=== PATIENT | female | born 1950 | race Caucasian/White ===

== ENCOUNTER 2018-03-04 18:55 | Inpatient (IN) | payer MEDICARE ==
[~2018-03-04] VITALS: Ht 160 cm; Wt 97.7 kg
--- OUTSIDE RECORDS SUMMARY | 2018-03-04 18:58 | XMS REPORT | Clinical Summary ---
Author Author [facility] Organization [facility] Address Unknown Phone Unavailable Care Team Providers Care Dry Transfer Man Name Role Phone Levi Subramanian MD PCP Allergies Comments Active Allergy Reactions Severity Noted Date Blisters in tongue Sulfa (Sulfonamide 04/30/2016 Antibiotics) Medications End Date Status Medication Sig Dispensed Refills Start Date Active buPROPion (WELLBUTRIN) Take 100 mg 0 100 MG tablet by mouth 2 (two) times a day. Active simvastatin (ZOCOR) 40 MG Take 40 mg by 0 tablet mouth nightly. Active amLODIPine (NORVASC) 10 Take 10 mg by 0 mg tablet mouth daily. Active aspirin (ECOTRIN) 81 MG Take 81 mg by 0 enteric coated tablet mouth daily. Active fluticasone-vilanterol Inhale 1 0 (BREO ELLIPTA) 200-25 inhalations mcg/dose blister with every device powder for morning. inhalation Active metFORMIN (GLUCOPHAGE) Take 1,000 mg 0 1,000 mg tablet by mouth 2 (two) times a day with meals. Active glipiZIDE (GLUCOTROL) 5 Take 5 mg by 0 MG tablet mouth 2 (two) times a day before meals. Active albuterol (PROAIR Inhale 2 0 HFA,PROVENTIL puffs every 6 HFA,VENTOLIN HFA) 90 (six) hours mcg/actuation inhaler as needed for wheezing. Active ipratropium-albuterol Take 3 mL by 0 (DUO-NEB) 0.5-2.5 mg/mL nebulization nebulizer 2 (two) times a day. Active tiZANidine (ZANAFLEX) 4 Take 4 mg by 0 MG tablet mouth every 6 (six) hours as needed for muscle spasms. Active CANAGLIFLOZIN (INVOKANA Take 300 mg 0 ORAL) by mouth every evening. Active Problems Problem Noted Date 4-part fracture of surgical neck of left humerus, initial encounter for 05/13/2016 closed fracture Social History Date Tobacco Use Types Packs/Day Years Used Current Every Day Smoker 0.5 40 Smokeless Tobacco: Never Used Alcohol Use Drinks/Week oz/Week Comments Yes 1/day Sex Assigned at Date Recorded Not on file Industry Job Start Date Occupation Not on file Not on file Not on file Travel End Travel History Travel Start No recent travel history available. Last Filed Vital Signs Not on file Plan of Treatment Health Maintenance Due Date Last Done Comments BREAST CANCER SCREENING 04/29/1999 COLON CANCER SCREENING 04/29/1999 SHINGLES VACCINES (1 of 04/29/1999 2) PNEUMOCOCCAL 2014 POLYSACCHARIDE VACCINE AGE 65 AND OVER PNEUMOCOCCAL-13 2014 INFLUENZA VACCINE 09/22/2017 Implants Device Identifier Shelf Expiration Date Model / Serial / Lot Implanted Type Area Manufactur er 11/28/2020 [id number] / / N/A Niceloop Suture White Nonabsorbable Accessorie N/A: N/A TORNIER Suture Loop Size 5- Qty Of 1 s Implanted: Qty: 2 on 05/14/2016 by Sung Jensen MD 12/16/2020 [id number] / / N/A Niceloop Suture White/Green Accessorie N/A: N/A TORNIER Nonabsorbable Suture Loop Size 5 - s Qty Of 1 Implanted: Qty: 2 on 05/14/2016 by Sung Jensen MD 12/16/2020 [id number] / [id number] / [id number] Restrictor Cmnt 24mm - [id number] - Human N/A: Shoulder TORNIER [id number] Tissue INC Implanted: Qty: 1 on 05/13/2016 by Implants Sung Jensen MD 12/16/2020 [id number] / / N/A Restrictor Cmnt 24mm - [id number] Human N/A: N/A TORNIER Implanted: Qty: 2 on 05/14/2016 by Tissue INC Sung Jensen MD Implants 06/13/2020 [id number] / / [id number] Aequalis Reversed Fracture Humeral IPM Left: Humerus TORNIER Stem 9 Mm Diameter X 130 Mm Length IMPLANT INC - [id number] [id number] Implanted: Qty: 1 on 05/13/2016 by Sung Jensen MD 07/21/2020 [id number] / / [id number] Aequalis Reversed Adapter IPM Left: Humerus TORNIER (Primary/Fracture To IMPLANT INC Reversed)Lateralized Insert - 36 Mm DEVICES X 9 Mm - [id number] Implanted: Qty: 1 on 05/13/2016 by Sung Jensen MD 01/03/2020 [id number] / / [id number] Baseplate Gleno Aequalis 25mm - Orthopedic Left: Humerus TORNIER [id number] [employer] Implanted: Qty: 1 on 05/13/2016 by Implants Sung Jensen MD 09/17/2020 [id number] / / [id number] Sphere Gleno Bsplt Centrd [id number] Orthopedic N/A: N/A TORNIER Aequalis - [id number] [employer] Implanted: Qty: 1 on 05/13/2016 by Implants Sung Jensen MD 05/22/2018 [id number] / / [id number] Cement Bone 20gr Cmw - [id number] Surgical N/A: N/A DEPUY Implanted: Qty: 2 on 05/13/2016 by Bone ORTHO Sung Jensen MD Cement [id number] / / 4.5mm X 23mm Locking Screw TORNIER Implanted: Qty: 1 on 05/13/2016 by Sung Jensen MD [id number] / / 4.5mm X 35mm Locking Screw TORNIER Implanted: Qty: 1 on 05/13/2016 by Sung Jensen MD [id number] / / 4.5mm X 45mm Compression Screw TORNIER Implanted: Qty: 1 on 05/13/2016 by Sung Jensen MD [id number] / / 4.5mm X 32mm Compression Screw TORNIER Implanted: Qty: 1 on 05/13/2016 by Sung Jensen MD Results Not on fileafter 03/03/2017 Insurance Payer Benefit Subscriber ID Type Phone Address Plan / Group MEDICARE MEDICARE xxxxxxxxxx Medicare [place], [place] PART A AND B AARP AARP xxxxxxxxxx Commercial SUPPLEMENT Advance Directives Patient has advance care planning documents on file. For more information, kaylee garber contact: Shamir Boss [address] [place] [address]
[2018-03-04] MEDS ORDERED: ALBUTEROL/IPRATROPIUM 3 ML NEB NEB STA ×2 (19:15→19:55)
[2018-03-04] MEDS ORDERED: METHYLPREDNISOLONE SOD SUCC 125 MG/2ML VIAL IV STA (19:15)
[2018-03-04] MEDS ORDERED: LEVOFLOXACIN 750MG/D5W 150ML 150 ML IV ONE (20:00)
--- NOTE | 2018-03-04 20:13 | Diagnostic Imaging Report ---
EXAMINATION: CXR 1 VIEW - HOPD INDICATION: COPD. Shortness of breath. COMPARISON: None FINDINGS: TUBES and LINES: None. LUNGS: Mild bilateral hyperinflation. 5.5 mm nodular density projected on the right lower lobe medially. 5.5 mm nodular density projected on the right upper lobe. Mild patchy density in the left lung base laterally represent atelectasis versus developing pneumonia in the proper clinical setting. PLEURA: No pleural effusion or pneumothorax. HEART AND MEDIASTINUM: The cardiomediastinal silhouette is unremarkable. BONES AND SOFT TISSUES: Bipolar left glenohumeral prosthesis partially visualized. UPPER ABDOMEN: No free air under the diaphragm. IMPRESSION: 1. Mild patchy density in the left lung base laterally represent atelectasis versus developing pneumonia in the proper clinical setting. Consider chest PA and lateral views for further evaluation. 2. 2 small right pulmonary nodules. Recommend follow-up chest PA and lateral views in 3 months to evaluate stability or lack thereof. Signed by: Dr. Cecy Stein M.D. on 03/04/2018 8:09 PM
[2018-03-04] MEDS: NICOTINE 14 MG/EA PATCH TOP SCH (20:45)
[2018-03-04] MEDS ORDERED: DEXTROSE 50% SYRINGE 50 ML IV PRN (20:45)
[2018-03-04] MEDS ORDERED: LEVOFLOXACIN 750MG/DEXTROSE PREMIX BAG 150ML IV SCH (20:45)
[2018-03-04] MEDS ORDERED: SODIUM CHLORIDE FLUSH 10 ML SYR INJ PRN (20:45)
[2018-03-04] MEDS: ALBUTEROL SULF 0.083% NEB SOLN 3 ML NEB NEB SCH (20:45)
--- OUTSIDE RECORDS SUMMARY | 2018-03-04 21:13 | XMS REPORT | Clinical Summary ---
Author Author [facility] Address Unknown Phone Unavailable Care Team Providers Care Maintenance Team Member Name Role Phone Levi Subramanian MD PCP [...] Lot Implanted Type Area Manufactur er 11/28/2020 [id number] / / N/A Niceloop Suture White Nonabsorbable Accessorie N/A: N/A TORNIER Suture Loop Size 5- Qty Of 1 s Implanted: Qty: 2 on 05/14/2016 by Sung Jensen MD 12/16/2020 [id number] / / N/A Niceloop Suture White/Green Accessorie N/A: N/A TORNIER Nonabsorbable Suture Loop Size 5 - s Qty Of 1 Implanted: Qty: 2 on 05/14/2016 by Sung Jensen MD 12/16/2020 [id number] / [id number] / [id number] Restrictor Cmnt 24mm - [id number] - Human N/A: Shoulder TORNIER [id number] Tissue INC Implanted: Qty: 1 on 05/13/2016 by Implants Sung Jensen MD 12/16/2020 [id number] / / N/A Restrictor Cmnt 24mm - [id number] Human N/A: N/A TORNIER Implanted: Qty: 2 on 05/14/2016 by Tissue INC Sung Jensen MD Implants 06/13/2020 [id number] / / [id number] Aequalis Reversed Fracture Humeral IPM Left: Humerus TORNIER Stem 9 Mm Diameter X 130 Mm Length IMPLANT INC - [id number] Implanted: Qty: 1 on 05/13/2016 by Sung Jensen MD 07/21/2020 [id number] / / [id number] Aequalis Reversed Adapter IPM Left: Humerus TORNIER (Primary/Fracture To IMPLANT INC Reversed)Lateralized Insert - 36 Mm DEVICES X 9 Mm - [id number] Implanted: Qty: 1 on 05/13/2016 by Sung Jensen MD 01/03/2020 [id number] / / [id number] Baseplate Gleno Aequalis 25mm - Orthopedic Left: Humerus TORNIER [id number] [employer] Implanted: Qty: 1 on 05/13/2016 by Implants Sung Jensen MD 09/17/2020 [id number] / / [id number] Sphere Gleno Bsplt Centrd [id number] Orthopedic N/A: N/A TORNIER Aequalis - [id number] [employer] Implanted: Qty: 1 on 05/13/2016 by Implants Sung Jensen MD 05/22/2018 [id number] / / [id number] Cement Bone 20gr Cmw - [id number] Surgical N/A: N/A DEPUY Implanted: Qty: 2 on 05/13/2016 by Bone ORTHO Sung Jensen MD Cement [id number] / / 4.5mm X 23mm Locking Screw TORNIER Implanted: Qty: 1 on 05/13/2016 by Sung Jensen MD [id number] / / 4.5mm X 35mm Locking Screw TORNIER Implanted: Qty: 1 on 05/13/2016 by Sung Jensen MD [id number] / / 4.5mm X 45mm Compression Screw TORNIER Implanted: Qty: 1 on 05/13/2016 by Sung Jensen MD [id number] / / 4.5mm X 32mm Compression Screw TORNIER Implanted: Qty: 1 on 05/13/2016 by Sung Jensen MD Results Not on fileafter 03/03/2017 Insurance Payer Benefit Subscriber ID Type Phone Address Plan / Group MEDICARE MEDICARE xxxxxxxxxx Medicare [place], [place] PART A AND B AARP AARP xxxxxxxxxx Commercial SUPPLEMENT Advance Directives Patient has advance care planning documents on file. For more information, kaylee garber contact: Shamir Boss [address] [place] [address]
--- OUTSIDE RECORDS SUMMARY | 2018-03-04 21:13 | XMS REPORT ---
[facility] Address Unknown Phone Unavailable Care Team Providers Care Card Sorter Name Role Phone LATOYA VALDEZ Unavailable Unavailable Problems This patient has no known problems. Allergies, Adverse Reactions, Alerts This patient has no known allergies or adverse reactions. Medications This patient has no known medications. Results Test Description Test Time Test Comments Text Results Atomic Results Result Comments CXR 1 [facility] 2018-03-04 20:07:00 [place] [address] Patient Name: BONIFACIO GUNDERSON MR #: [id number] : 1950 Age/Sex: 67/F Req #: [id number] [facility] Physician: Ordered by: LATOYA VALDEZ MD Report #: [id number] Location: [facility] Room/Bed: Procedure: [id number] HOPD/CXR 1 [facility] Exam Date: 03/04/18 Exam Time: 1950 REPORT STATUS: Signed EXAMINATION: CXR 1 [facility] INDICATION: COPD. Shortness of breath. COMPARISON: None FINDINGS: TUBES and LINES: None. LUNGS: Mild bilateral hyperinflation. 5.5 mm nodular density projected on the right lower lobe medially. 5.5 mm nodular density projected on the right upper lobe. Mild patchy density in the left lung base laterally represent atelectasis versus developing pneumonia in the proper clinical setting. PLEURA: No pleural effusion or pneumothorax. HEART AND MEDIASTINUM: The cardiomediastinal silhouette is unremarkable. BONES AND SOFT TISSUES: Bipolar left glenohumeral prosthesis partially visualized. UPPER ABDOMEN: No free air under the diaphragm. IMPRESSION: 1. Mild patchy density in the left lung base laterally represent atelectasis versus developing pneumonia in the proper clinical setting. Consider chest PA and lateral views for further evaluation. 2. 2 small right pulmonary nodules. Recommend follow-up chest PA and lateral views in 3 months to evaluate stability or lack thereof. Signed by: Dr. Cecy Brumfield M.D. on 03/04/2018 8:09 PM Dictated By: NASIM BRUMFIELD MD, MD 08 Transcribed By: JAVIER on 03/04/182008 COPY TO: LATOYA VALDEZ MD
[2018-03-04] MEDS ORDERED: AMLODIPINE BESY10 MG PO (21:47)
[2018-03-04] MEDS ORDERED: TURMERIC1 GM PO (21:47)
[2018-03-04] MEDS ORDERED: METFORMIN HCL500 MG PO (21:47)
[2018-03-04] MEDS ORDERED: INVOKANA (21:47)
[2018-03-04] MEDS ORDERED: BUPROPION HCL100 MG PO (21:47)
[2018-03-04] MEDS ORDERED: FARXIGA (21:47)
[2018-03-04] MEDS ORDERED: ASPIR 8181 MG (21:47)
[2018-03-04] MEDS ORDERED: GLIPIZIDE5 MG PO (21:47)
[2018-03-04] MEDS ORDERED: SIMVASTATIN20 MG PO (21:47)
[2018-03-04 22:36] VITALS: BP 156/71
[2018-03-04] MEDS: METHYLPREDNISOLONE SOD SUCC 125 MG/2ML VIAL IV SCH (22:36)
[2018-03-04 22:40] VITALS: BP 156/71
[2018-03-05] VITALS (9 sets, daily range): BP systolic 125–169; BP diastolic 61–69
[2018-03-05] MEDS: ALBUTEROL SULF 0.083% NEB SOLN 3 ML NEB NEB SCH ×7 (00:45→23:25)
[2018-03-05 04:46] LABS: BASOPHILS % 0.2 % (0.0-1.0); EOSINOPHILS % 0.1 % (0.0-6.0); HEMATOCRIT 43.3 % (34.2-44.1); HEMOGLOBIN 13.4 g/dL (12.0-16.0); LYMPHOCYTES # (AUTO) 0.8 (1.0-3.2); LYMPHOCYTES % 8.2 % (18.0-39.1); MEAN CORPUSCULAR HEMOGLOBIN 28.7 pg (28-32); MEAN CORPUSCULAR HGB CONC 30.9 g/dL (31-35); MEAN CORPUSCULAR VOLUME 92.7 fL (81-99); MONOCYTES # (AUTO) 0.1 (0.2-0.8); MONOCYTES % 0.6 % (4.4-11.3); NEUTROPHILS # (AUTO) 8.9 (2.1-6.9); NEUTROPHILS % 90.4 % (38.7-80.0); PLATELET COUNT 324 x10e3/uL (140-360); RED BLOOD COUNT 4.67 x10e6/uL (3.6-5.1); RED CELL DISTRIBUTION WIDTH 12.6 % (11.7-14.4)
[2018-03-05 05:02] LABS: CREATINE KINASE 47 IU/L (29-168)
[2018-03-05 05:24] LABS: ANION GAP 15.9 mmol/L (8-16); BLOOD UREA NITROGEN 10 mg/dL (7-26); BUN/CREATININE RATIO 13 (6-25); CALCIUM 10.1 mg/dL (8.4-10.2); CARBON DIOXIDE 32 mmol/L (22-29); CHLORIDE 99 mmol/L (98-107); CREATININE, SERUM 0.79 mg/dL (0.57-1.11); EST GLOMERULAR FILTRATION RATE > 60 ML/MIN (60-); GLUCOSE 213 mg/dL (74-118); POTASSIUM 4.9 mmol/L (3.5-5.1); SODIUM 142 mmol/L (136-145)
[2018-03-05] MEDS: IPRATROPIUM BROMIDE 0.02% 2.5 ML NEB NEB SCH ×5 (06:00→23:25)
[2018-03-05] MEDS: METHYLPREDNISOLONE SOD SUCC 125 MG/2ML VIAL IV SCH ×3 (06:07→20:57)
[2018-03-05] MEDS ORDERED: DEXTROSE 50% SYRINGE 50 ML IV PRN (08:45)
[2018-03-05] MEDS ORDERED: ZOLPIDEM TARTRATE 10 MG TAB PO PRN (08:45)
[2018-03-05] MEDS ORDERED: CEFTRIAXONE SOD 1 GM VIAL IV SCH (08:45)
[2018-03-05] MEDS: METFORMIN HCL 500 MG TAB PO SCH ×2 (09:25→17:01)
[2018-03-05] MEDS: ASPIRIN 81 MG CHEW TAB PO SCH (09:25)
[2018-03-05] MEDS: GLIPIZIDE 5 MG TAB PO SCH ×2 (09:25→17:01)
[2018-03-05] MEDS: OSELTAMIVIR PHOSPHATE 75 MG CAP PO SCH ×2 (09:25→17:01)
[2018-03-05] MEDS: BUPROPION HCL 100 MG TAB PO SCH (09:25)
[2018-03-05] MEDS: AMLODIPINE BESYLATE 10 MG TAB PO SCH (09:27)
[2018-03-05] MEDS ORDERED: SODIUM CHLORIDE 0.9% 250ML 250 ML ONE (09:54)
--- NOTE | 2018-03-05 09:54 | History and Physical ---
CHIEF COMPLAINT: Cough, congestion, and dyspnea. HISTORY OF PRESENT ILLNESS: The patient is a 67-year-old woman with a history of COPD. She uses p.o. at home as well as a rescue inhaler. She also has oxygen at home. She notes increased cough and congestion over the past several days. She has increased rhinorrhea. She is not having any chest pain or fevers. PAST MEDICAL HISTORY 1. COPD. 2. Diabetes. 3. Hypertension. PAST SURGICAL HISTORY: Status post partial small intestine resection for a mass. ALLERGIES: SULFA. SOCIAL HISTORY: This patient smoked about half a pack a day up until recently. She is not a drinker. 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 REVIEW OF SYSTEMS: She does not complain of any fever. She has no headache. She does have some nasal congestion. She is not having any neck pain. She has no swollen glands. She has no chest pain. She does note cough and some increased dyspnea. She has no abdominal pain. She has no nausea or vomiting. She has no leg edema. She denies any focal neurological complaints. PHYSICAL EXAMINATION VITAL SIGNS: The patient is afebrile, blood pressure is 137/63, and saturation is 97% on 3 liters. HEENT: Examination shows no facial swelling or erythema. The nasal mucosa is normal. Oropharynx is normal. LYMPHATIC: Examination shows no submandibular, cervical, or supraclavicular adenopathy. NECK: Shows no JVD or thyromegaly. There is no nuchal rigidity. CARDIOVASCULAR: Reveals a regular rate and rhythm with a normal S1 and S2. There are no murmurs or rubs. RESPIRATORY: Auscultation of lungs reveals rhonchorous breath sounds bilaterally. There is no wheezing. ABDOMEN: Soft and nontender. There is no rebound or guarding. EXTREMITIES: Examination of the extremities shows no leg edema or calf tenderness. There is no cyanosis or clubbing. SKIN: Shows no rashes. NEUROLOGIC: Exam shows no focal abnormalities. LABORATORY DATA: The BUN to creatinine ratio is 10 to 0.79 and the blood sugar is 167 to 213. The CBC is within normal limits. RADIOGRAPHIC DATA: The chest x-ray shows a density in the left lung base as well as a small pulmonary nodule in the right upper lung. IMPRESSION 1. Chronic obstructive pulmonary disease with acute exacerbation. 2. Community-acquired pneumonia. 3. Pulmonary nodule. 4. Hypertension. 5. Diabetes. PLAN 1. The patient will receive IV antibiotics along with Solu-Medrol. 2. Bronchodilators. 3. CT scan of the chest. 4. Alpha 1 antitrypsin level. 5. Monitor blood sugars. Job#: [id number] BRIAN
[2018-03-05] MEDS: CEFTRIAXONE SOD 1 GM/NS 50 ML 50 ML IV SCH ×2 (09:58→20:57)
[2018-03-05] MEDS: AZITHROMYCIN 500MG/NS 250 ML 250 ML IV SCH (09:58)
[2018-03-05] MEDS: INSULIN REGULAR, HUMAN 100 UNIT/1 ML 3ML VIAL SQ SCH ×3 (12:17→21:00)
[2018-03-05 12:30] LABS: CREATINE KINASE 51 IU/L (29-168)
--- NOTE | 2018-03-05 14:39 | Diagnostic Imaging Report ---
EXAM: CT Chest WITH contrast INDICATION: Nodule on prior chest radiograph, query pneumonia COMPARISON: None TECHNIQUE: Chest was scanned utilizing a multidetector helical scanner from the lung apex through the level of the adrenal glands without administration of IV contrast. Coronal and sagittal reformations were obtained. Routine protocol was performed. Dose modulation, iterative reconstruction, and/or weight based adjustment of the mA/kV was utilized to reduce the radiation dose to as low as reasonably achievable. IV CONTRAST: 100 mL of Isovue 370. RADIATION DOSE: Total DLP: 550.4 mGy*cm COMPLICATIONS: None FINDINGS: LINES/ TUBES: None. LUNGS AND AIRWAYS: Likely adherent mucus along the right lateral and inferior aspect of the trachea. No definite mass in the central airways. Moderate upper lobe predominant centrilobular emphysematous changes of the lungs. There is a 6 mm predominately calcified nodule in the right middle lobe on series 2, image 37. Motion artifact partially limits evaluation for lung nodule. No nodule corresponding to the opacity noted in the right upper lung on chest radiograph from 03/04/2018. PLEURA: The pleural spaces are clear. HEART AND MEDIASTINUM: The thyroid gland is normal. No mediastinal, hilar or axillary lymphadenopathy. No cardiomegaly or pericardial effusion. Moderate at this chronic calcifications of the thoracic aorta and branch vessels. Extensive coronary atherosclerosis. UPPER ABDOMEN: Limited views of the abdomen show no abnormality within the visualized liver, spleen, pancreas, or kidneys. There is a 1.3 cm right adrenal nodule (7HU), consistent with adenoma. BONES/SOFT TISSUES: No acute bony abnormality. Degenerative changes of the visualized spine. IMPRESSION: No evidence of pneumonia. Peripherally calcified 6 mm nodule in the right middle lobe corresponding to opacity noted on prior chest radiograph, consistent with benign etiology. No CT correlate to nodular opacity in the right upper lung on prior chest radiograph, likely representing superimposition of structures. Moderate emphysematous changes of the lungs. Motion artifact limits evaluation for small lung nodules. Follow-up chest CT may be considered in 12 months. Signed by: Dr. Zen Brink MD on 03/05/2018 2:35 PM
[2018-03-05] MEDS ORDERED: IOPAMIDOL 370 MG/ML 200 ML INFUS..BTL INJ ONE (16:37)
[2018-03-05] MEDS ORDERED: SODIUM CHLORIDE 0.9% 50ML 50 ML ONE (16:37)
[2018-03-05 19:55] LABS: CREATINE KINASE 63 IU/L (29-168)
[2018-03-05] MEDS ORDERED: FLUCONAZOLE 200 MG/100 ML 100 ML IV ONE (20:00)
[2018-03-05] MEDS ORDERED: LEVOFLOXACIN 750MG/D5W 150ML 150 ML IV SCH (20:30)
[2018-03-05] MEDS: NICOTINE 14 MG/EA PATCH TOP SCH (20:45)
[2018-03-05] MEDS ORDERED: SIMVASTATIN 20 MG TAB PO SCH (21:00)
[2018-03-05] MEDS: BUDESONIDE/FORMOTEROL 160/4.5MCG INHALER INH SCH (21:00)
[2018-03-06] MEDS: ALBUTEROL SULF 0.083% NEB SOLN 3 ML NEB NEB SCH ×4 (04:20→14:27)
[2018-03-06 05:34] VITALS: BP 180/76
[2018-03-06] MEDS: IPRATROPIUM BROMIDE 0.02% 2.5 ML NEB NEB SCH ×2 (06:00→11:00)
[2018-03-06] MEDS: BUDESONIDE/FORMOTEROL 160/4.5MCG INHALER INH SCH (06:43)
--- NOTE | 2018-03-06 07:10 | NUR ---
received pt lying in bed with eyes open and TV on, Resp even and unlabored. denies pain at this time. call light within reach.
[2018-03-06] MEDS: INSULIN REGULAR, HUMAN 100 UNIT/1 ML 3ML VIAL SQ SCH ×2 (07:30→12:19)
[2018-03-06 07:33] VITALS: BP 149/67
[2018-03-06 07:37] VITALS: BP 149/67
[2018-03-06] MEDS: METFORMIN HCL 500 MG TAB PO SCH (08:51)
[2018-03-06] MEDS: ASPIRIN 81 MG CHEW TAB PO SCH (08:52)
[2018-03-06] MEDS: CEFTRIAXONE SOD 1 GM/NS 50 ML 50 ML IV SCH (08:52)
[2018-03-06] MEDS: GLIPIZIDE 5 MG TAB PO SCH (08:52)
[2018-03-06] MEDS: AMLODIPINE BESYLATE 10 MG TAB PO SCH (08:52)
[2018-03-06] MEDS: METHYLPREDNISOLONE SOD SUCC 125 MG/2ML VIAL IV SCH (08:52)
[2018-03-06] MEDS: BUPROPION HCL 100 MG TAB PO SCH (08:52)
[2018-03-06] MEDS: OSELTAMIVIR PHOSPHATE 75 MG CAP PO SCH (08:52)
[2018-03-06] MEDS: AZITHROMYCIN 500MG/NS 250 ML 250 ML IV SCH (08:52)
[2018-03-06 11:50] VITALS: BP 123/55
--- NOTE | 2018-03-06 14:30 | NUR ---
PIV removed with tip intact. telemetry removed. patient denies pain upon d/c. escorted via WC to front lobby entrance where daughter awaited in private auto. all personal belongings, RX and d/c instructions in hand at time of d/c.
--- NOTE | 2018-03-06 20:29 | Discharge Summary ---
DISCHARGE DIAGNOSES 1. Chronic obstructive pulmonary disease with acute exacerbation. 2. Viral syndrome. 3. Hypertension. 4. Diabetes. DISCHARGE MEDICATIONS 1. Norvasc 10 mg p.o. daily. 2. Aspirin 81 mg p.o. daily. 3. Bupropion 130 mg p.o. daily. 4. Glipizide 5 mg p.o. b.i.d. 5. Metformin 100 mg p.o. b.i.d. 6. Simvastatin 20 mg p.o. daily. 7. Tamiflu 75 mg p.o. b.i.d. for 5 days. 8. Prednisone 10 mg p.o. daily for 5 days. 9. Albuterol HFA inhaler as needed. RADIOGRAPHIC DATA: CT scan of the chest shows findings consistent with moderate emphysema. There is a small calcified granuloma in the right middle lobe. There are no opacities or mass lesions. HISTORY OF PRESENT ILLNESS: Patient is a 67-year-old woman. She has a history of COPD. She uses oxygen at home as well as rescue inhaler as needed. 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 Guerrero. She reports increased cough and congestion over the past several days. She notes increased rhinorrhea, but he is having no chest pain or fevers. HOSPITAL COURSE: The patient was admitted. She was started on IV Solu-Medrol along with bronchodilators and Tamiflu. She also started on antibiotics. Her initial chest x-ray showed possible infiltrate. CT scan was obtained, which showed no evidence of pulmonary infiltrates. There were no mass lesions. The patient's symptoms improved with bronchodilators and Solu-Medrol. She was eager to go home at the time of discharge. DISPOSITION: Patient will be discharged home with Tamiflu for 5 days as well as prednisone 10 mg a day for 5 days. She will follow up with Dr. Guerrero in 2 to 3 weeks. FRANK JOSUE MD Job#: [id number] AKU cc:DR. GUERRERO
== END 2018-03-06 14:30 | disposition home or self-care (01) | DRG 866 ==
LOC: FSED 18:55 → ERHOLD 20:41 → MED/SURG2 22:37
PROVIDERS: ADMIT Internal Medicine Critical Care Medicine; ATTEND Internal Medicine Critical Care Medicine
DX: B34.9 Viral infection, unspecified (principal); J44.1 Chronic obstructive pulmonary disease with (acute) exacerbation; Z99.81 Dependence on supplemental oxygen; E11.9 Type 2 diabetes mellitus without complications; I10 Essential (primary) hypertension; R91.1 Solitary pulmonary nodule; R09.02 Hypoxemia; Z87.891 Personal history of nicotine dependence; Z79.84 Long term (current) use of oral hypoglycemic drugs; Z79.82 Long term (current) use of aspirin; Z88.2 Allergy status to sulfonamides
CPT/HCPCS: 36415; 71045; 71260; 80048; 80076; 82103; 82550; 82553; 82948; 84484; 85025; 87040; 87070; 87205; 87400; 93005; 94640; 99283; J0456; J0696; J1450; J2930; J7050; Q9967